=== PATIENT | female | born 1980 | race Caucasian/White ===

== ENCOUNTER 2020-04-24 13:48 | Emergency (ER) | payer SELFPAY ==
[2020-04-24 14:02] VITALS: BP 161/87; PULSE 72; RESP 18; TEMP 36.7; O2SAT 98; BMI 24.2
--- NOTE | 2020-04-24 14:25 | W.ED.GENADLT ---
HPI - General Adult General: Chief complaint: Fever Stated complaint: fever Time Seen by Provider: 04/24/20 14:12 Source: patient Mode of arrival: ambulatory Limitations: no limitations History of Present Illness: HPI narrative: Patient is a 40-year-old female who presents to ED today from [facility] for multiple medical complaints. She tells me over the past few days she has had fevers of 100.6. She is complaining of right flank and right abdominal pain. She has body aches, diarrhea, complains of urinary dysuria/frequency/urgency. She complains of a rash to her anterior neck that she states [place] She tells me on April 12 when she arrived at [facility] they had her tested for COVID which was negative. She had a rapid COVID test today based on her symptoms which again was negative. There have been no other sick contacts at [facility]. 4 days ago she was seen via virtual telehealth med visit and placed on amoxicillin for a toothache. Associated symptoms: Reports rash; Deny chest pain, dyspnea, headache(s), nausea, palpitations, syncope or vomiting Review of Systems Const: Reports: fever(s) and body aches Eyes: Denies: change in vision, blurry vision, photophobia, floaters or seeing flashes ENMT: Reports: throat pain; Denies: swelling of lips/tongue, oral sores, ear or mastoid pain, ear discharge or nasal congestion Card: Denies: chest pain, palpitations, irregular heart rhythm, edema, swelling of feet/ankles, lightheadedness, syncope, pre-syncope, dyspnea on exertion, orthopnea or leg pain with exertion Resp: Reports: productive cough and chest congestion; Denies: dyspnea or hemoptysis GI: Reports: abdominal pain and diarrhea; Denies: nausea, vomiting, hematochezia or melena : Reports: flank pain, dysuria, urinary frequency and urinary urgency; Denies: difficulty voiding, urinary hesitancy, dribbling, hematuria, genital lesions, genital pruritis, vaginal odor, vaginal bleeding, vaginal discharge or pelvic pain Musc: Denies: neck pain, extremity pain, extremity swelling, joint pain or joint swelling Skin/Breast: Reports: rash Neuro: Denies: headache(s), numbness in extremities, weakness in extremities or sensory changes Physical Exam Const: COMMON NORMALS: no acute distress, average body habitus, patient oriented x3, no limitations, healthy appearing, alert and well nourished ORIENTATION/CONSCIOUSNESS: Yes oriented to person, Yes oriented to place and Yes oriented to time HENMT: COMMON NORMALS: normocephalic, atraumatic, hearing grossly normal bilaterally, external ears normal, EAC's normal, TM's normal bilaterally, Normal external nose present, Normal nasal mucous membranes and turbinates present, moist oral mucous membranes, oropharynx normal and gingiva normal HEAD & SCALP: normal to inspection, normocephalic and atraumatic FACE & SINUS: normal facial exam and sinuses nontender NOSE: Normal external nose present and Normal nasal mucous membranes and turbinates present EXTERNAL EAR: Yes external ears normal EXTERNAL AUDITORY CANAL: EAC's normal TYMPANIC MEMBRANE: TM's normal bilaterally MOUTH: Normal oral and palatal mucosa present, lip normal and tongue normal THROAT: posterior oropharynx normal, tonsils normal and uvula midline Eye: COMMON NORMALS: Equal, round and reactive pupils present, EOMs intact bilaterally, conjunctivae normal and no scleral icterus CONJUNCTIVA: Yes conjunctivae normal PUPIL: Yes Equal, round and reactive pupils present Neck/C-Spine: COMMON NORMALS: full ROM, no lymphadenopathy and no meningeal signs OTHER: rash anterior neck consistent with plant dermatitis Resp: COMMON NORMALS: normal respiratory effort and clear to auscultation bilaterally AUSCULTATION: clear to auscultation bilaterally Cardio: COMMON NORMALS: regular rate and regular rhythm RATE: regular rate RHYTHM: regular rhythm GI: COMMON NORMALS: Normal to inspection, nondistended, normoactive bowel sounds present, Soft to palpation, No hepatosplenomegaly present and no masses PALPATION: Yes Soft to palpation, Yes Tenderness to palpation present (GI) (mild R sided abdominal pain; no guarding; non-surgical abdomen ) and Yes No hepatosplenomegaly present : BLADDER/KIDNEY EXAM: Yes CVA tenderness (mild) on the right Back/Pelvis: COMMON NORMALS: thoracic and lumbar spine normal to inspection, no thoracic nor lumbar tenderness and thoraco-lumbar ROM normal GENERAL BACK: Yes CVA tenderness (mild) Extremity: COMMON NORMALS: normal to inspection, full ROM, capillary refill normal, no clubbing, cyanosis or edema, no calf tenderness and no pedal edema GENERAL: Yes normal exam except as noted Neuro: TIMMY COMA SCALE: document GCS findings [place] coma scale eye opening: Spontaneous [place] coma scale verbal response: Orientated Timmy coma scale motor response: Obey commands [place] coma scale total score: 15 COMMON NORMALS: patient oriented x3, moves all extremities, no focal motor deficits and no sensory deficits noted SENSORIUM/ORIENTATION: Yes alert, Yes oriented to person, Yes oriented to place and Yes oriented to time MENINGEAL SIGNS: Yes no meningeal signs Skin: NARRATIVE SKIN EXAM: rash to anterior neck; otherwise normal skin exam Course Vital Signs: Vital signs: Vital Signs Temperature 98.1 F 04/24/20 14:02 Pulse Rate 69 04/24/20 16:33 Respiratory Rate 18 04/24/20 16:33 Blood Pressure 157/89 04/24/20 16:33 Pulse Oximetry 100 04/24/20 16:33 MDM - General Adult MDM Narrative: Medical decision making narrative: Patient's vital signs are stable. Her lab work is not concerning at this time. Her UA is negative. Influenza is negative. CXR is normal. Based on symptoms most likely patient having a viral illness. Discussed possibility of false negative on her COVID testing. Recommend she continue to quarantine while at [facility] for another week. Lab Data: Labs: Lab Results 04/24/20 04/24/20 04/24/20 Range/Units 14:57 14:57 14:57 WBC 10.1 H (4.0-10.0) 10^3/ uL RBC 4.52 (4.1-5.3) 10^6/u L Hgb 13.4 (11.5-15.3) g/dL Hct 40.5 (37.0-47.0) % MCV 89.6 (81-99) fL MCH 29.6 (28.0-34.0) pg MCHC 33.1 (30.0-36.0) g/dL RDW 12.3 (12.1-15.1) % Plt Count 265 (130-400) 10^3/c mm MPV 9.3 (7.4-10.4) fL Neut % (Auto) 63.4 % Lymph % (Auto) 28.3 % [place] % (Auto) 5.6 % Eos % (Auto) 2.1 % Baso % (Auto) 0.3 % Neut # (Auto) 6.39 (1.8-7.7) 10^3/u L Lymph # (Auto) 2.9 (0.8-4.8) 10^3/u L [place] # (Auto) 0.6 (0.2-0.9) 10^3/u L Eos # (Auto) 0.2 (0.0-0.8) 10^3/u L Baso # (Auto) 0.0 (0.0-0.1) 10^3/u L Nucleated RBC % (a uto) 0 % Nucleated RBCs # 0.0 /100WBC Sodium 141 (136-145) mmol/L Potassium 4.6 (3.5-5.1) mmol/L Chloride 107 (98-107) mmol/L Carbon Dioxide 24 (22-29) mmol/L Anion Gap 14.6 (5-19) BUN 12 (6-20) mg/dL Creatinine 0.7 (0.5-0.9) mg/dL GFR Calculation 93.6 (90-130) mL/min Glucose 98 (65-115) mg/dL Calculated Osmolal ity 288 (285-295) mOsm/k g Lactic Acid 0.9 (0.5-2.2) mmol/L Calcium 9.4 (8.5-10.5) mg/dL Total Bilirubin 0.4 (0.15-1.2) mg/dL AST 45 H (0-32) U/L ALT 52 H (0-33) U/L Alkaline Phosphata se 67 (35-105) IU/L Total Protein 6.7 (6.6-8.7) g/dL Albumin 3.9 (3.5-5.2) g/dL Globulin 2.8 (1.3-4.6) g/dL Urine Color (Yellow) Urine Appearance (CLEAR) Urine pH (5-7) Ur Specific Gravit y (1.005-1.030) Urine Protein (Negative) Urine Glucose (UA) (Normal) Urine Ketones (Negative) Urine Blood (Negative) Urine Nitrate (Negative) Urine Bilirubin (NEGATIVE) Prot Sulfosalicyli c Acd (Negative) Urine Urobilinogen (Negative) mg/dL Ur Leukocyte Chelo ase (Negative) Influenza Type A A g (Negative) Influenza Type B A g (Negative) 08/25/20 08/25/20 Range/Units 15:17 15:17 WBC (4.0-10.0) 10^3/ uL RBC (4.1-5.3) 10^6/u L Hgb (11.5-15.3) g/dL Hct (37.0-47.0) % MCV (81-99) fL MCH (28.0-34.0) pg MCHC (30.0-36.0) g/dL RDW (12.1-15.1) % Plt Count (130-400) 10^3/c mm MPV (7.4-10.4) fL Neut % (Auto) % Lymph % (Auto) % [place] % (Auto) % Eos % (Auto) % Baso % (Auto) % Neut # (Auto) (1.8-7.7) 10^3/u L Lymph # (Auto) (0.8-4.8) 10^3/u L [place] # (Auto) (0.2-0.9) 10^3/u L Eos # (Auto) (0.0-0.8) 10^3/u L Baso # (Auto) (0.0-0.1) 10^3/u L Nucleated RBC % (a uto) % Nucleated RBCs # /100WBC Sodium (136-145) mmol/L Potassium (3.5-5.1) mmol/L Chloride (98-107) mmol/L Carbon Dioxide (22-29) mmol/L Anion Gap (5-19) BUN (6-20) mg/dL Creatinine (0.5-0.9) mg/dL GFR Calculation (90-130) mL/min Glucose (65-115) mg/dL Calculated Osmolal ity (285-295) mOsm/k g Lactic Acid (0.5-2.2) mmol/L Calcium (8.5-10.5) mg/dL Total Bilirubin (0.15-1.2) mg/dL AST (0-32) U/L ALT (0-33) U/L Alkaline Phosphata se (35-105) IU/L Total Protein (6.6-8.7) g/dL Albumin (3.5-5.2) g/dL Globulin (1.3-4.6) g/dL Urine Color Straw (Yellow) Urine Appearance Clear (CLEAR) Urine pH 8 H (5-7) Ur Specific Gravit y 1.010 (1.005-1.030) Urine Protein Neg (Negative) Urine Glucose (UA) Norm (Normal) Urine Ketones Negative (Negative) Urine Blood Neg (Negative) Urine Nitrate Negative (Negative) Urine Bilirubin Neg (NEGATIVE) Prot Sulfosalicyli c Acd Negative (Negative) Urine Urobilinogen Norm (Negative) mg/dL Ur Leukocyte Chel[place] ase Negative (Negative) Influenza Type A A g Negative (Negative) Influenza Type B A g Negative (Negative) Imaging Data^: CXR: Radiologist's impression: [address] [address] XRay Report Signed Patient: Uzma Huggins Unit #: [id number] : 1980 Age/Sex: 40 / F ADM Date: 04/24/20 Loc: ER Room/Bed: Attending Dr: Ordering Provider/Ordering MD: Padmini Greene Date of Service: 04/24/20 Procedure(s): XR chest 1V portable [id number] Accession Number(s): [id number] Report Number: [id number] PROCEDURE INFORMATION: Exam: XR Chest, 1 View Exam date and time: 04/24/2020 2:40 PM Age: 40 years old Clinical indication: Other: Back pain; Patient HX: Recently stopped using drugs and alcohol; Additional info: Chest pain TECHNIQUE: Imaging protocol: XR of the chest Views: 1 view. COMPARISON: No relevant prior studies available. FINDINGS: Lungs: Minor curvilinear atelectasis right lung base. Pleural space: Blunting of right lateral costophrenic angle is somewhat nonspecific but could indicate a small right pleural effusion. Heart/Mediastinum: Unremarkable. No cardiomegaly. Bones/joints: Unremarkable. XR/XR chest 1V portable [id number] IMPRESSION: 1. Blunting of right lateral costophrenic angle is somewhat nonspecific but could indicate a small right pleural effusion. 2.) Minor thin curvilinear atelectasis right lung base. Dictated By: Jose Scott MD Signed By: Jose Scott MD Signed Date/Time: 04/24/20 1525 DD/ 1524 Discharge Plan Discharge Patient Disposition: Home Clinical Impression: Viral illness, Dermatitis due to plant Condition: Stable Prescriptions: New Calamine Clear 1-0.1 % lotion 1 applic TOPICAL BID PRN (Reason: rash) Qty: 177 RF: 0 No Action clonidine HCl 0.1 mg Tablet 0.1 mg PO BID PRN (Reason: unknown) RF: 0 doxepin 25 mg Capsule 25 - 50 mg PO BEDTIME PRN (Reason: unknown) RF: 0 hydroxyzine pamoate 50 mg Capsule 50 mg PO TID PRN (Reason: Anxiety) RF: 0 baclofen 10 mg Tablet 10 mg PO TID PRN (Reason: unknown) RF: 0 ibuprofen 200 mg Tablet 400 mg PO PRN RF: 0 Augmentin 875-125 mg Tablet 1 tab PO BID RF: 0 Discharge Orders: Discharge Order (Routine); Ordered 04/24/20 Ordered By: Padmini Greene Referrals: Howard Steele MD [Primary Care Provider] - Patient Instructions: Viral Syndrome (ED) Activity Restrictions/Additional Instructions: Please continue to quarantine for the next week. She may take Tylenol and/or Ibuprofen as needed for fevers and body aches. Rest and continue to push fluids. She may return to the emergency department for any worsening symptoms or concerns you may have. Discharge Date/Time: 04/24/20 16:35 Coding Level of Care Code ED Ice Platform Supervisor for Brittney Fwele Exam Comprehensive
[2020-04-24] MEDS: sodium chloride 0.9% 1,000 ML 999 ML IV (14:55)
[2020-04-24 15:05] LABS: Basophils % 0.3 %; Eosinophils # 0.2 10^3/uL (0.0-0.8); Eosinophils % 2.1 %; Hematocrit 40.5 % (37.0-47.0); Hemoglobin 13.4 g/dL (11.5-15.3); Lymphocytes # 2.9 10^3/uL (0.8-4.8); Lymphocytes % 28.3 %; Mean Corpuscular HGB Conc 33.1 g/dL (30.0-36.0); Mean Corpuscular Hemoglobin 29.6 pg (28.0-34.0); Mean Corpuscular Volume 89.6 fL (81-99); Mean Platelet Volume 9.3 fL (7.4-10.4); Monocytes # 0.6 10^3/uL (0.2-0.9); Monocytes % 5.6 %; Neutrophils # 6.39 10^3/uL (1.8-7.7); Neutrophils % 63.4 %; Nucleated Red Blood Cells % 0 %; Platelet Count 265 10^3/cmm (130-400); Red Blood Count 4.52 10^6/uL (4.1-5.3); Red Cell Distribution Width 12.3 % (12.1-15.1); White Blood Count 10.1 10^3/uL (4.0-10.0)
[2020-04-24 15:23] LABS: Lactic Sepsis W/Reflex 0.9 mmol/L (0.5-2.2)
[2020-04-24 15:24] LABS: Alanine Aminotransferase 52 U/L (0-33); Albumin Level 3.9 g/dL (3.5-5.2); Alkaline Phosphatase 67 IU/L (35-105); Anion Gap 14.6 (5-19); Aspartate Amino Transferase 45 U/L (0-32); Blood Urea Nitrogen 12 mg/dL (6-20); Calcium 9.4 mg/dL (8.5-10.5); Carbon Dioxide 24 mmol/L (22-29); Chloride 107 mmol/L (98-107); Globulin 2.8 g/dL (1.3-4.6); Glomerular Filtration Rate 93.6 mL/min (90-130); Glucose 98 mg/dL (65-115); Osmolality Calculated 288 mOsm/kg (285-295); Potassium 4.6 mmol/L (3.5-5.1); Sodium 141 mmol/L (136-145); Total Bilirubin 0.4 mg/dL (0.15-1.2); Total Protein 6.7 g/dL (6.6-8.7)
[2020-04-24 15:36] LABS: Add Urine Microscopic? NO
[2020-04-24 15:43] LABS: Bilirubin Urine Neg (NEGATIVE); Blood Urine Neg (Negative); Glucose Urine UA Norm (Normal); Ketones Urine Negative (Negative); Leukocyte Esterase Urine Negative (Negative); Nitrate Urine Negative (Negative); Protein Urine Neg (Negative); Sulfosalicylic Acid Urine Negative (Negative); Urine Appearance Clear (CLEAR); Urine Color Straw (Yellow); Urobilinogen Urine Norm (Negative); pH Urine 8 (5-7)
[2020-04-24 16:06] LABS: Influenza A by IFA Negative (Negative); Influenza B by IFA Negative (Negative)
[2020-04-24 16:33] VITALS: BP 157/89; PULSE 69; RESP 18; O2SAT 100
== END 2020-04-24 16:35 | disposition home or self-care (01) ==
PROVIDERS: Emergency Provider Physician Assistant; PCP Family Medicine
DX: B34.9 Viral infection, unspecified (principal); L25.5 Unspecified contact dermatitis due to plants, except food
CPT/HCPCS: 12345; 36415; 71045; 80053; 81003; 83605; 85025; 87040; 87804; 96360; 99283; J7030

== ENCOUNTER → 2020-04-26 10:30 | Outpatient (BNVA) | payer OTHER, SELFPAY | PROVIDERS: PCP Family Medicine; Visit Provider Internal Medicine | DX: Z11.59 Encounter for screening for other viral diseases (principal); R51 Headache; R50.9 Fever, unspecified | CPT/HCPCS: 87635 ==

== ENCOUNTER 2020-11-28 12:19 | Emergency (ER) | payer SELFPAY ==
[2020-11-28 12:23] VITALS: BP 149/115; PULSE 82; RESP 16; TEMP 36.6; O2SAT 98; BMI 22.6
--- NOTE | 2020-11-28 12:53 | W.ED.GENADLT ---
HPI - General Adult General: Chief complaint: General Medical Stated complaint: HEADACHE/UNABLE TO SEE Time Seen by Provider: 11/28/20 12:21 History of Present Illness: HPI narrative: 40 yo female presents from the local skilled nursing with complaints of nausea and vomiting difficulty with vision states she has glaucoma she also states she is having withdrawal from narcotics she has not used any narcotics in the last 2 days. During history taking patient is noted to track movement well and can focus. She will even garbage pick up man on movements at her peripheral vision that catch her attention and focus to them. Onset (ago): minute(s) Associated symptoms: Deny chest pain, dyspnea, malaise, nausea, rash or vomiting Review of Systems Const: Denies: fever(s), chills, body aches, change in appetite, fatigue or malaise ENMT: Denies: throat pain, ear or mastoid pain, nasal discharge or nasal congestion Card: Denies: chest pain, edema, dyspnea on exertion or orthopnea Resp: Denies: dyspnea, productive cough or non-productive cough GI: Denies: abdominal pain, nausea, vomiting, hematemesis, coffee ground emesis, diarrhea, constipation, bloating, hematochezia or melena : Denies: flank pain, difficulty voiding, dysuria, urinary frequency or urinary urgency Skin/Breast: Denies: rash or pruritus PFSH ED PFSH: Medical History Glaucoma Physical Exam Const: COMMON NORMALS: no acute distress GENERAL APPEARANCE: cooperative and comfortable ORIENTATION/CONSCIOUSNESS: Yes awake, Yes oriented to person, Yes oriented to place and Yes oriented to time HENMT: COMMON NORMALS: normocephalic, atraumatic, hearing grossly normal bilaterally, external ears normal, EAC's normal, TM's normal bilaterally, Normal nasal mucous membranes and turbinates present, moist oral mucous membranes and oropharynx normal HEAD & SCALP: normocephalic and atraumatic NOSE: Normal nasal mucous membranes and turbinates present EXTERNAL EAR: Yes external ears normal EXTERNAL AUDITORY CANAL: EAC's normal TYMPANIC MEMBRANE: TM's normal bilaterally Eye: COMMON NORMALS: Equal, round and reactive pupils present, EOMs intact bilaterally, conjunctivae normal and no scleral icterus CONJUNCTIVA: Yes conjunctivae normal PUPIL: Yes Equal, round and reactive pupils present OTHER: Ocular pressure measurements. 26 in the right eye 24 in the left eye. Neck/C-Spine: COMMON NORMALS: full ROM, no lymphadenopathy, supple and no JVD Lymph: LYMPHATIC: no lymphadenopathy noted and no lymphedema noted Resp: COMMON NORMALS: normal respiratory effort, No retractions, No use of accessory muscles and clear to auscultation bilaterally AUSCULTATION: clear to auscultation bilaterally Cardio: COMMON NORMALS: no JVD, regular rate, regular rhythm and No murmurs present (Cardio) RATE: regular rate RHYTHM: regular rhythm GI: COMMON NORMALS: Soft to palpation and No hepatosplenomegaly present AUSCULTATION: Yes normoactive bowel sounds PALPATION: Yes Soft to palpation, No Tenderness to palpation present (GI), No Guarding due to palpation present (GI) and Yes No hepatosplenomegaly present Extremity: COMMON NORMALS: normal to inspection, capillary refill normal, no clubbing, cyanosis or edema, no calf tenderness and no pedal edema Neuro: SENSORIUM/ORIENTATION: Yes oriented to person, Yes oriented to place and Yes oriented to time Skin: COMMON NORMALS: no rashes or lesions noted GENERAL SKIN EXAM: no rashes or lesions noted Course Vital Signs: Vital signs: Vital Signs Temperature 97.9 F 11/28/20 12:23 Pulse Rate 79 11/28/20 16:24 Respiratory Rate 18 11/28/20 16:24 Blood Pressure 137/101 11/28/20 16:24 Pulse Oximetry 98 11/28/20 16:24 MDM - General Adult MDM Narrative: Medical decision making narrative: Patient is tracking and focusing. Ocular pressures are mildly elevated discussed with Dr. Coronado he does not feel at this point it is emergent. She has no eye pain there is no redness or erythema. Once we had reviewed this with her she suddenly became suicidal. She then changed her complaint again and states she was having generalized aches and pains she demanded to be admitted. She then returned to complaining of suicidal attempts telling the acute care occupational therapist how she would harm herself by forcing something into an electric socket a particular area of the skilled nursing. The acute care occupational therapist told her she would not be allowed into that area again. Then patient stated she would starve herself. Psychiatry was consulted. Neither myself nor Dr. Carrillo feel the patient warrants a true harm to self at this point. She can be kept on suicide watch at the skilled nursing which we recommend. Lab Data: Labs: Lab Results 11/28/20 11/28/20 Range/Units 14:12 14:12 WBC 12.7 H (4.0-10.0) 10^3/ uL RBC 4.70 (4.1-5.3) 10^6/u L Hgb 13.3 (11.5-15.3) g/dL Hct 41.4 (37.0-47.0) % MCV 88.1 (81-99) fL MCH 28.3 (28.0-34.0) pg MCHC 32.1 (30.0-36.0) g/dL RDW 11.9 L (12.1-15.1) % Plt Count 428 H (130-400) 10^3/c mm MPV 8.6 (7.4-10.4) fL Neut % (Auto) 73.9 % Lymph % (Auto) 22.4 % [place] % (Auto) 2.7 % Eos % (Auto) 0.1 % Baso % (Auto) 0.2 % Neut # (Auto) 9.41 H (1.8-7.7) 10^3/u L Lymph # (Auto) 2.9 (0.8-4.8) 10^3/u L [place] # (Auto) 0.3 (0.2-0.9) 10^3/u L Eos # (Auto) 0.0 (0.0-0.8) 10^3/u L Baso # (Auto) 0.0 (0.0-0.1) 10^3/u L Nucleated RBC % (a uto) 0 % Nucleated RBCs # 0.0 /100WBC Sodium 138 (136-145) mmol/L Potassium 3.9 (3.5-5.1) mmol/L Chloride 102 (98-107) mmol/L Carbon Dioxide 27 (22-29) mmol/L Anion Gap 12.9 (5-19) BUN 11 (6-20) mg/dL Creatinine 0.5 (0.5-0.9) mg/dL GFR Calculation 138.1 H (90-130) mL/min Glucose 94 (65-115) mg/dL Calculated Osmolal ity 285 (285-295) mOsm/k g Calcium 9.0 (8.5-10.5) mg/dL Total Bilirubin 0.3 (0.15-1.2) mg/dL AST 11 (0-32) U/L ALT 15 (0-33) U/L Alkaline Phosphata se 58 (35-105) IU/L Total Protein 7.7 (6.6-8.7) g/dL Albumin 3.9 (3.5-5.2) g/dL Globulin 3.8 (1.3-4.6) g/dL Discharge Plan Discharge Patient Disposition: Home Clinical Impression: Headache, Glaucoma, Threatening suicide Condition: Stable Prescriptions: No Action clonidine HCl 0.1 mg Tablet 0.1 mg PO BID PRN (Reason: unknown) RF: 0 doxepin 25 mg Capsule 25 - 50 mg PO BEDTIME PRN (Reason: unknown) RF: 0 hydroxyzine pamoate 50 mg Capsule 50 mg PO TID PRN (Reason: Anxiety) RF: 0 baclofen 10 mg Tablet 10 mg PO TID PRN (Reason: unknown) RF: 0 ibuprofen 200 mg Tablet 400 mg PO PRN RF: 0 amoxicillin-pot clavulanate [Augmentin] 875-125 mg Tablet 1 tab PO BID RF: 0 [place] Clear 1-0.1 % lotion 1 applic TOPICAL BID PRN (Reason: rash) Qty: 177 RF: 0 Discharge Orders: Discharge ED (Routine); Ordered 11/28/20 Ordered By: Arthur Dempsey Patient Instructions: Opioid Safety Activity Restrictions/Additional Instructions: His management make arrangements for you to see Dr. Coronado. It is recommended that you be placed on suicide watch at the skilled nursing. Coding Level of Care Code ED Manager Icu for Brittney Fwd Exam Comprehensive
--- NOTE | 2020-11-28 12:55 | CT_ITS ---
WS: [id number] CT HEAD NONCONTRAST HISTORY: headache w vision changes TECHNIQUE: Contiguous axial imaging performed through the brain in 2.5 mm imaging. Bone and soft tiss ue windows. Sagittal and coronal reformats reviewed. All CT scans at [facility] use at ast one of these dose optimization techniques: automated exposure control; mA and/or kV adjustment pe r patient size (includes targeted exams where dose is matched to clinical indication); or iterative r econstruction. DLP: 835.64 mGy.cm COMPARISON: 02/02/2015 No acute intracranial hemorrhage, midline shift or mass effect. No atrophy or prior infarcts or herniation. Ventricles: Normal size with no hydrocephalus. No inferior displacement of cerebellar tonsils. Paranasal sinuses: As visualized are clear. Mastoid air cells: Well pneumatized. Calvarium and scalp: Skull is intact with no soft tissue edema or swelling. CT/CT head wo con* [id number] IMPRESSION: Negative head CT.
[2020-11-28] MEDS: sodium chloride 0.9% 1,000 ML 999 ML IV (13:11)
[2020-11-28] MEDS: ondansetron 2 mg/ML SDV 2 mL 4 MG IVP (13:11)
[2020-11-28 14:19] LABS: Basophils % 0.2 %; Eosinophils % 0.1 %; Hematocrit 41.4 % (37.0-47.0); Hemoglobin 13.3 g/dL (11.5-15.3); Lymphocytes # 2.9 10^3/uL (0.8-4.8); Lymphocytes % 22.4 %; Mean Corpuscular HGB Conc 32.1 g/dL (30.0-36.0); Mean Corpuscular Hemoglobin 28.3 pg (28.0-34.0); Mean Corpuscular Volume 88.1 fL (81-99); Mean Platelet Volume 8.6 fL (7.4-10.4); Monocytes # 0.3 10^3/uL (0.2-0.9); Monocytes % 2.7 %; Neutrophils # 9.41 10^3/uL (1.8-7.7); Neutrophils % 73.9 %; Nucleated Red Blood Cells % 0 %; Platelet Count 428 10^3/cmm (130-400); Red Cell Distribution Width 11.9 % (12.1-15.1); White Blood Count 12.7 10^3/uL (4.0-10.0)
--- NOTE | 2020-11-28 14:24 | PC.NURSE ---
US guided IV placed to right AC, 20g after multiple sticks. Blood drawn and sent to lab.
[2020-11-28 14:39] LABS: Alanine Aminotransferase 15 U/L (0-33); Albumin Level 3.9 g/dL (3.5-5.2); Alkaline Phosphatase 58 IU/L (35-105); Anion Gap 12.9 (5-19); Aspartate Amino Transferase 11 U/L (0-32); Blood Urea Nitrogen 11 mg/dL (6-20); Carbon Dioxide 27 mmol/L (22-29); Chloride 102 mmol/L (98-107); Globulin 3.8 g/dL (1.3-4.6); Glomerular Filtration Rate 138.1 mL/min (90-130); Glucose 94 mg/dL (65-115); Osmolality Calculated 285 mOsm/kg (285-295); Potassium 3.9 mmol/L (3.5-5.1); Sodium 138 mmol/L (136-145); Total Bilirubin 0.3 mg/dL (0.15-1.2); Total Protein 7.7 g/dL (6.6-8.7)
[2020-11-28] MEDS: promethazine 25 mg/mL SDV 1 mL IM (15:31)
[2020-11-28] MEDS: ketorolac 30 mg/mL INJ IVP (15:31)
[2020-11-28] MEDS: tetanus-dipt-pertussis 0.5 mL SDV IM (16:03)
[2020-11-28] MEDS: LORazepam 2 mg Tablet PO (16:12)
[2020-11-28] MEDS: haloperidol inj 5 mg/mL INJ 1 mL IM (16:14)
--- NOTE | 2020-11-28 16:22 | PC.NURSE ---
patients arm was covered with telfa and gauze the right arm was covered with triple abx ointmentl patient tolerated well
[2020-11-28 16:24] VITALS: BP 137/101; PULSE 79; RESP 18; O2SAT 98
== END 2020-11-28 16:26 | disposition home or self-care (01) ==
PROVIDERS: Emergency Provider Family Medicine
DX: R51.9 Headache, unspecified (principal); H40.9 Unspecified glaucoma; R45.851 Suicidal ideations; Z23 Encounter for immunization
CPT/HCPCS: 70450; 80053; 85025; 90471; 90715; 96361; 96372; 96374; 96375; 99284; A6446; J1630; J1885; J2405; J2550; J7030

== ENCOUNTER → 2021-12-27 13:05 | Outpatient (BNVA) | payer OTHER, SELFPAY | PROVIDERS: Visit Provider Psychiatry & Neurology Psychiatry | DX: F11.20 Opioid dependence, uncomplicated (principal); F15.20 Other stimulant dependence, uncomplicated; Z79.899 Other long term (current) drug therapy | CPT/HCPCS: 80307 ==

== ENCOUNTER → 2022-01-06 12:06 | Outpatient (BNVA) | payer OTHER, SELFPAY | PROVIDERS: Visit Provider Psychiatry & Neurology Psychiatry | DX: Z79.899 Other long term (current) drug therapy (principal); F11.20 Opioid dependence, uncomplicated | CPT/HCPCS: 80307 ==

== ENCOUNTER → 2022-02-03 11:41 | Outpatient (BNVA) | payer OTHER, SELFPAY | PROVIDERS: Visit Provider Psychiatry & Neurology Psychiatry | DX: F11.20 Opioid dependence, uncomplicated (principal); F15.20 Other stimulant dependence, uncomplicated; F43.12 Post-traumatic stress disorder, chronic; F17.200 Nicotine dependence, unspecified, uncomplicated; Z79.899 Other long term (current) drug therapy | CPT/HCPCS: 80307 ==

== ENCOUNTER → 2022-08-21 10:56 | Outpatient (BNVA) | payer OTHER, SELFPAY | PROVIDERS: Visit Provider Psychiatry & Neurology Psychiatry | DX: Z79.899 Other long term (current) drug therapy (principal); F11.20 Opioid dependence, uncomplicated; F43.12 Post-traumatic stress disorder, chronic; F17.200 Nicotine dependence, unspecified, uncomplicated; F15.20 Other stimulant dependence, uncomplicated | CPT/HCPCS: 80307 ==

== ENCOUNTER 2022-09-07 19:19 | Emergency (ER) | payer MEDICAID, SELFPAY ==
--- NOTE | 2022-09-07 19:23 | W.ED.PSYCHS ---
Documented by User: Yoel Martínez MD 09/16/22 04:00 HPI - Psych General: Chief Complaint: Psychiatric Symptoms Stated Complaint: SI Time Seen by Provider: 09/07/22 19:23 History of Present Illness: Ms. Huggins is a 42-year-old lady with history of psychiatric disorder and polysubstance abuse presenting to the emergency department for suicidal ideation. She was in group home and prolonged forced reported affidavit was hitting her head against the wall stating she wanted to kill her self. She was restrained in a chair and continued to say similar and therefore brought to the emergency department for further evaluation. Patient reports increased stress lately and feeling like everything just got out of control today. She has been compliant with medication regimen and follows in the outpatient setting with [facility]. She does admit that her medications may need to be changed. She has a contusion to forehead with mild pain however no other significant symptoms. Denies other significant changes in health. Onset (ago): hour(s) History of same: Yes Context: significant life stressor Associated psychiatric symptoms: suicidal ideation and racing thoughts Review of Systems General: Reports: 10 or more systems reviewed and unremarkable except in HPI and below PFSH ED PFSH: Medical History Glaucoma Psychiatric care Social History Smoking and tobacco status: current every day smoker e-cigarettes E-Cigarette Details: vaporizer device and with nicotine E-cig/vape details: 48 mg/Q two days. Quit status (tobacco): has tried quititng Number of times tried to quit tobacco: 2 Second hand smoke exposure: Yes Smoking risk assessment/counseling performed?: No Alcohol intake: never Desire information about alcohol rehabilitation?: No Counseling given: No Desire information about substance/drug rehabilitation?: No Counseling given: No Physical Exam Const: COMMON NORMALS: alert GENERAL APPEARANCE: cooperative and well developed HENMT: COMMON NORMALS: normocephalic HEAD & SCALP: normocephalic OTHER: Contusion to forehead with superficial abrasion, no laceration or injury requiring repair. Eye: COMMON NORMALS: conjunctivae normal CONJUNCTIVA: Yes conjunctivae normal SCLERA: sclerae normal Neck/C-Spine: COMMON NORMALS: supple GENERAL: Yes trachea midline Resp: COMMON NORMALS: clear to auscultation bilaterally EFFORT & INSPECTION: Yes able to speak in complete sentences AUSCULTATION: clear to auscultation bilaterally Cardio: COMMON NORMALS: regular rate and regular rhythm RATE: regular rate RHYTHM: regular rhythm GI: COMMON NORMALS: Soft to palpation PALPATION: Yes Soft to palpation and No Tenderness to palpation present (GI) Extremity: GENERAL: Yes normal exam except as noted and No edema Neuro: COMMON NORMALS: moves all extremities SENSORIUM/ORIENTATION: Yes alert and No Orientation impaired Psych: COMMON NORMALS: mental status grossly normal and Normal thought process present THOUGHT PROCESS: Normal thought process present Course Vital Signs: Vital signs: Vital Signs Temperature 98.1 F 09/07/22 19:34 Pulse Rate 68 09/07/22 19:34 Respiratory Rate 16 09/07/22 19:34 Blood Pressure 118/81 09/07/22 19:34 Pulse Oximetry 97 09/07/22 19:34 Oxygen Delivery Me thod 09/07/22 19:34 MDM - Psych Medical Decision Making 42-year-old lady presenting from group home with reported suicidal statements. Exam as above. No significant hematologic or metabolic abnormality requiring invention. Toxic ingestions negative. Handed off to overnight ED physician pending reassessment and possible placement. I received this patient and check out from the previous physician at shift change. This lady does have a psychiatric history. The police have released her from custody. She is stating that the actions listed in the HPI were simply a ploy to get her to be released from custody and out of group home. She floridly denies any suicidal ideation or plan whatsoever. She is not homicidal. She is sitting in the hallway, and roaming around the ER, as she says the room makes her stressed out. An affidavit was written by law enforcement, but the patient was not placed under 96 hour hold. We have no beds available at our facility. Again, she is in no way suicidal, and is asking to leave and go home. She has a ride ready. She is medically stable as per the labs below. She will be discharged. Medical Records I reviewed the patient's medical records. Lab Data I reviewed the patient's lab results. 09/07/22 19:57 09/07/22 19:57 Laboratory Results WBC 9.8 10^3/uL (4.0-10.0) 09/07/22 19:57 RBC 4.75 10^6/uL (4.1-5.3) 09/07/22 19:57 Hgb 13.7 g/dL (11.5-15.3) 09/07/22 19:57 Hct 42.7 % (37.0-47.0) 09/07/22 19:57 MCV 89.9 fl (81-99) 09/07/22 19:57 MCH 28.8 pg (28.0-34.0) 09/07/22 19:57 MCHC 32.1 g/dL (30.0-36.0) 09/07/22 19:57 RDW 11.8 % (12.1-15.1) L 09/07/22 19:57 Plt Count 323 10^3/cmm (130-400) 09/07/22 19:57 MPV 9.6 fL (7.4-10.4) 09/07/22 19:57 Neut % (Auto) 63.0 % 09/07/22 19:57 Lymph % (Auto) 32.2 % 09/07/22 19:57 Victoria % (Auto) 3.2 % 09/07/22 19:57 Eos % (Auto) 1.2 % 09/07/22 19:57 Baso % (Auto) 0.3 % 09/07/22 19:57 Neut # (Auto) 6.19 10^3/uL (1.8-7.7) 09/07/22 19:57 Lymph # (Auto) 3.2 10^3/uL (0.8-4.8) 09/07/22 19:57 Victoria # (Auto) 0.3 10^3/uL (0.2-0.9) 09/07/22 19:57 Eos # (Auto) 0.1 10^3/uL (0.0-0.8) 09/07/22 19:57 Baso # (Auto) 0.0 10^3/uL (0.0-0.1) 09/07/22 19:57 Nucleated RBC % (auto) 0 % 09/07/22 19:57 Nucleated RBCs # 0.0 /100WBC 09/07/22 19:57 Sodium 135 mmol/L (136-145) L 09/07/22 19:57 Potassium 3.6 mmol/L (3.5-5.1) 09/07/22 19:57 Chloride 100 mmol/L (98-107) 09/07/22 19:57 Carbon Dioxide 24 mmol/L (22-29) 09/07/22 19:57 Anion Gap 14.6 (5-19) 09/07/22 19:57 BUN 16 mg/dL (6-20) 09/07/22 19:57 Creatinine 0.6 mg/dL (0.5-0.9) 09/07/22 19:57 GFR Calculation 110.7 mL/min (90-130) 09/07/22 19:57 Glucose 147 mg/dL (65-115) H 09/07/22 19:57 Calculated Osmolality 284 mOsm/kg (285-295) L 09/07/22 19:57 Calcium 9.7 mg/dL (8.5-10.5) 09/07/22 19:57 Total Bilirubin 0.3 mg/dL (0.15-1.2) 09/07/22 19:57 AST 22 U/L (0-32) 09/07/22 19:57 ALT 35 U/L (0-33) H 09/07/22 19:57 Alkaline Phosphatase 87 U/L (35-105) 09/07/22 19:57 Total Protein 7.9 g/dL (6.6-8.7) 09/07/22 19:57 Albumin 4.2 g/dL (3.5-5.2) 09/07/22 19:57 Globulin 3.7 g/dL (1.3-4.6) 09/07/22 19:57 TSH 0.68 uIU/mL (0.27-4.20) 09/07/22 19:57 HCG, Qual Negative (Negative) 09/07/22 19:25 Salicylates < 0.3 mg/dL (3-10) L 09/07/22 19:57 Urine Opiates Screen Negative ng/mL (Negative) 09/07/22 19:25 Acetaminophen < 5.0 ug/mL (10-30) L 09/07/22 19:57 Ur Barbiturates Screen Negative ng/mL (Negative) 09/07/22 19:25 Ur Phencyclidine Scrn Negative ng/mL (Negative) 09/07/22 19:25 Ur Amphetamines Screen Negative ng/mL (Negative) 09/07/22 19:25 U Benzodiazepines Scrn Negative ng/mL (Negative) 09/07/22 19:25 Urine Cocaine Screen Negative ng/mL (Negative) 09/07/22 19:25 U Marijuana (THC) Screen Negative ng/mL (Negative) 09/07/22 19:25 Ethyl Alcohol < 10 mg/dL (0-10) 09/07/22 19:57 Discharge Plan Discharge Patient Disposition: Home Clinical Impression: Depression Condition: Stable Prescriptions: No Action propranolol 20 mg tablet 20 mg PO BID Qty: 60 2RF buprenorphine-naloxone 8-2 mg tablet, sublingual 1 tab sublingual BID Qty: 60 0RF ibuprofen 200 mg tablet 600 mg PO BID PRN (Reason: fever or pain) Discharge Orders: Discharge ED (Routine); Ordered 09/08/22 Ordered By: Crispin Angulo Patient Instructions: Depression (ED) Activity Restrictions/Additional Instructions: Return for any return of thoughts or wishes to harm your self or anyone else Coding Level of Care Code ED Outpatient Physical Therapist Assistant for Chg Fwd Exam Comprehensive Documented by User: Crispin Angulo DO 09/09/22 12:01 HPI - Psych General: Chief Complaint: Psychiatric Symptoms Stated Complaint: SI Time Seen by Provider: 09/07/22 19:23 [facility] PFSH: Medical History Glaucoma Psychiatric care Social History Smoking and tobacco status: current every day smoker e-cigarettes E-Cigarette Details: vaporizer device and with nicotine E-cig/vape details: 48 mg/Q two days. Quit status (tobacco): has tried quititng Number of times tried to quit tobacco: 2 Second hand smoke exposure: Yes Smoking risk assessment/counseling performed?: No Alcohol intake: never Desire information about alcohol rehabilitation?: No Counseling given: No Desire information about substance/drug rehabilitation?: No Counseling given: No Course Vital Signs: Vital signs: Vital Signs Temperature 98.1 F 09/07/22 19:34 Pulse Rate 68 09/07/22 19:34 Respiratory Rate 16 09/07/22 19:34 Blood Pressure 118/81 09/07/22 19:34 Pulse Oximetry 97 09/07/22 19:34 Oxygen Delivery Me thod 09/07/22 19:34 MDM - Psych Medical Decision Making I received this patient and check out from the previous physician at shift change. This lady does have a psychiatric history. The police have released her from custody. She is stating that the actions listed in the HPI were simply a ploy to get her to be released from custody and out of group home. She floridly denies any suicidal ideation or plan whatsoever. She is not homicidal. She is sitting in the hallway, and roaming around the ER, as she says the room makes her stressed out. An affidavit was written by law enforcement, but the patient was not placed under 96 hour hold. We have no beds available at our facility. Again, she is in no way suicidal, and is asking to leave and go home. She has a ride ready. She is medically stable as per the labs below. She will be discharged. Lab Data 09/07/22 19:57 09/07/22 19:57 Laboratory Results WBC 9.8 10^3/uL (4.0-10.0) 09/07/22 19:57 RBC 4.75 10^6/uL (4.1-5.3) 09/07/22 19:57 Hgb 13.7 g/dL (11.5-15.3) 09/07/22 19:57 Hct 42.7 % (37.0-47.0) 09/07/22 19:57 MCV 89.9 fl (81-99) 09/07/22 19:57 MCH 28.8 pg (28.0-34.0) 09/07/22 19:57 MCHC 32.1 g/dL (30.0-36.0) 09/07/22 19:57 RDW 11.8 % (12.1-15.1) L 09/07/22 19:57 Plt Count 323 10^3/cmm (130-400) 09/07/22 19:57 MPV 9.6 fL (7.4-10.4) 09/07/22 19:57 Neut % (Auto) 63.0 % 09/07/22 19:57 Lymph % (Auto) 32.2 % 09/07/22 19:57 Victoria % (Auto) 3.2 % 09/07/22 19:57 Eos % (Auto) 1.2 % 09/07/22 19:57 Baso % (Auto) 0.3 % 09/07/22 19:57 Neut # (Auto) 6.19 10^3/uL (1.8-7.7) 09/07/22 19:57 Lymph # (Auto) 3.2 10^3/uL (0.8-4.8) 09/07/22 19:57 Victoria # (Auto) 0.3 10^3/uL (0.2-0.9) 09/07/22 19:57 Eos # (Auto) 0.1 10^3/uL (0.0-0.8) 09/07/22 19:57 Baso # (Auto) 0.0 10^3/uL (0.0-0.1) 09/07/22 19:57 Nucleated RBC % (auto) 0 % 09/07/22 19:57 Nucleated RBCs # 0.0 /100WBC 09/07/22 19:57 Sodium 135 mmol/L (136-145) L 09/07/22 19:57 Potassium 3.6 mmol/L (3.5-5.1) 09/07/22 19:57 Chloride 100 mmol/L (98-107) 09/07/22 19:57 Carbon Dioxide 24 mmol/L (22-29) 09/07/22 19:57 Anion Gap 14.6 (5-19) 09/07/22 19:57 BUN 16 mg/dL (6-20) 09/07/22 19:57 Creatinine 0.6 mg/dL (0.5-0.9) 09/07/22 19:57 GFR Calculation 110.7 mL/min (90-130) 09/07/22 19:57 Glucose 147 mg/dL (65-115) H 09/07/22 19:57 Calculated Osmolality 284 mOsm/kg (285-295) L 09/07/22 19:57 Calcium 9.7 mg/dL (8.5-10.5) 09/07/22 19:57 Total Bilirubin 0.3 mg/dL (0.15-1.2) 09/07/22 19:57 AST 22 U/L (0-32) 09/07/22 19:57 ALT 35 U/L (0-33) H 09/07/22 19:57 Alkaline Phosphatase 87 U/L (35-105) 09/07/22 19:57 Total Protein 7.9 g/dL (6.6-8.7) 09/07/22 19:57 Albumin 4.2 g/dL (3.5-5.2) 09/07/22 19:57 Globulin 3.7 g/dL (1.3-4.6) 09/07/22 19:57 TSH 0.68 uIU/mL (0.27-4.20) 09/07/22 19:57 HCG, Qual Negative (Negative) 09/07/22 19:25 Salicylates < 0.3 mg/dL (3-10) L 09/07/22 19:57 Urine Opiates Screen Negative ng/mL (Negative) 09/07/22 19:25 Acetaminophen < 5.0 ug/mL (10-30) L 09/07/22 19:57 Ur Barbiturates Screen Negative ng/mL (Negative) 09/07/22 19:25 Ur Phencyclidine Scrn Negative ng/mL (Negative) 09/07/22 19:25 Ur Amphetamines Screen Negative ng/mL (Negative) 09/07/22 19:25 U Benzodiazepines Scrn Negative ng/mL (Negative) 09/07/22 19:25 Urine Cocaine Screen Negative ng/mL (Negative) 09/07/22 19:25 U Marijuana (THC) Screen Negative ng/mL (Negative) 09/07/22 19:25 Ethyl Alcohol < 10 mg/dL (0-10) 09/07/22 19:57 Discharge Plan Discharge Patient Disposition: Home Clinical Impression: Depression Condition: Stable Prescriptions: No Action propranolol 20 mg tablet 20 mg PO BID Qty: 60 2RF buprenorphine-naloxone 8-2 mg tablet, sublingual 1 tab sublingual BID Qty: 60 0RF ibuprofen 200 mg tablet 600 mg PO BID PRN (Reason: fever or pain) Discharge Orders: Discharge ED (Routine); Ordered 09/08/22 Ordered By: Crispin Angulo Patient Instructions: Depression (ED) Activity Restrictions/Additional Instructions: Return for any return of thoughts or wishes to harm your self or anyone else Coding Level of Care Code ED Outpatient Physical Therapist Assistant for Brittney Fwd Exam Comprehensive
[2022-09-07 19:29] VITALS: BMI 20.9
[2022-09-07 19:34] VITALS: BP 118/81; PULSE 68; RESP 16; TEMP 36.7; O2SAT 97
[2022-09-07 20:07] LABS: Basophils % 0.3 %; Eosinophils # 0.1 10^3/uL (0.0-0.8); Eosinophils % 1.2 %; Hematocrit 42.7 % (37.0-47.0); Hemoglobin 13.7 g/dL (11.5-15.3); Lymphocytes # 3.2 10^3/uL (0.8-4.8); Lymphocytes % 32.2 %; Mean Corpuscular HGB Conc 32.1 g/dL (30.0-36.0); Mean Corpuscular Hemoglobin 28.8 pg (28.0-34.0); Mean Corpuscular Volume 89.9 fl (81-99); Mean Platelet Volume 9.6 fL (7.4-10.4); Monocytes # 0.3 10^3/uL (0.2-0.9); Monocytes % 3.2 %; Neutrophils # 6.19 10^3/uL (1.8-7.7); Nucleated Red Blood Cells % 0 %; Platelet Count 323 10^3/cmm (130-400); Red Blood Count 4.75 10^6/uL (4.1-5.3); Red Cell Distribution Width 11.8 % (12.1-15.1); White Blood Count 9.8 10^3/uL (4.0-10.0)
[2022-09-07 20:11] LABS: HCG Qualitative Urine. Negative (Negative)
[2022-09-07 20:17] LABS: Amphetamines Screen Urine Negative (Negative); Barbiturates Screen Urine Negative (Negative); Benzodiazepines Screen Urine Negative (Negative); Cocaine Screen Urine Negative (Negative); Opiate Screen Urine Negative (Negative); PCP Screen Urine Negative (Negative); THC Screen Urine Negative (Negative)
[2022-09-07 20:41] LABS: Alanine Aminotransferase 35 U/L (0-33); Albumin Level 4.2 g/dL (3.5-5.2); Alkaline Phosphatase 87 U/L (35-105); Anion Gap 14.6 (5-19); Aspartate Amino Transferase 22 U/L (0-32); Blood Urea Nitrogen 16 mg/dL (6-20); Calcium 9.7 mg/dL (8.5-10.5); Carbon Dioxide 24 mmol/L (22-29); Chloride 100 mmol/L (98-107); Creatinine Clr Calc Pharmacy 116.4162; Globulin 3.7 g/dL (1.3-4.6); Glomerular Filtration Rate 110.7 mL/min (90-130); Glucose 147 mg/dL (65-115); Osmolality Calculated 284 mOsm/kg (285-295); Potassium 3.6 mmol/L (3.5-5.1); Sodium 135 mmol/L (136-145); Thyroid Stimulating Hormone 0.68 uIU/mL (0.27-4.20); Total Bilirubin 0.3 mg/dL (0.15-1.2); Total Protein 7.9 g/dL (6.6-8.7)
[2022-09-07 20:45] LABS: Acetaminophen < 5.0 ug/mL (10-30); Alcohol Level < 10 mg/dL (0-10); Salicylate < 0.3 mg/dL (3-10)
== END 2022-09-08 01:11 | disposition home or self-care (01) ==
PROVIDERS: Emergency Medicine; Emergency Provider Emergency Medicine
DX: F32.A Depression, unspecified (principal); F17.290 Nicotine dependence, other tobacco product, uncomplicated
CPT/HCPCS: 80053; 80306; 80307; 81025; 84443; 85025; 99283

== ENCOUNTER → 2022-11-27 15:04 | Outpatient (BNVA) | payer MEDICAID, SELFPAY | PROVIDERS: Visit Provider Psychiatry & Neurology Psychiatry | DX: F11.20 Opioid dependence, uncomplicated (principal); Z79.899 Other long term (current) drug therapy; F43.12 Post-traumatic stress disorder, chronic; F17.200 Nicotine dependence, unspecified, uncomplicated; F15.20 Other stimulant dependence, uncomplicated | CPT/HCPCS: 80307 ==

== ENCOUNTER → 2023-02-27 10:39 | Outpatient (BNVA) | payer OTHER, SELFPAY | PROVIDERS: Visit Provider Psychiatry & Neurology Psychiatry | DX: Z79.899 Other long term (current) drug therapy (principal); F11.20 Opioid dependence, uncomplicated; F15.20 Other stimulant dependence, uncomplicated | CPT/HCPCS: 80307 ==

== ENCOUNTER → 2023-03-04 15:21 | Outpatient (BNVA) | payer OTHER, SELFPAY | PROVIDERS: Visit Provider Psychiatry & Neurology Psychiatry | DX: F15.20 Other stimulant dependence, uncomplicated (principal); F11.20 Opioid dependence, uncomplicated; F43.12 Post-traumatic stress disorder, chronic; F17.200 Nicotine dependence, unspecified, uncomplicated; Z79.899 Other long term (current) drug therapy | CPT/HCPCS: 80307 ==

== ENCOUNTER → 2023-09-04 14:04 | Outpatient (BNVA) | payer OTHER, SELFPAY | PROVIDERS: Visit Provider Psychiatry & Neurology Psychiatry | DX: F11.20 Opioid dependence, uncomplicated (principal); F15.20 Other stimulant dependence, uncomplicated; Z79.899 Other long term (current) drug therapy; F43.12 Post-traumatic stress disorder, chronic; F17.200 Nicotine dependence, unspecified, uncomplicated | CPT/HCPCS: 80307 ==

== ENCOUNTER → 2024-05-16 15:28 | Outpatient (BNVA) | payer OTHER, SELFPAY | PROVIDERS: Visit Provider Psychiatry & Neurology Psychiatry | DX: Z79.899 Other long term (current) drug therapy (principal); F11.20 Opioid dependence, uncomplicated; F43.12 Post-traumatic stress disorder, chronic; F15.20 Other stimulant dependence, uncomplicated; F17.200 Nicotine dependence, unspecified, uncomplicated | CPT/HCPCS: 80307 ==

== ENCOUNTER → 2024-10-14 15:49 | Outpatient (BNVA) | payer OTHER, SELFPAY | PROVIDERS: Visit Provider Psychiatry & Neurology Psychiatry | DX: F11.20 Opioid dependence, uncomplicated (principal); F15.20 Other stimulant dependence, uncomplicated; F43.12 Post-traumatic stress disorder, chronic; Z79.899 Other long term (current) drug therapy; F17.200 Nicotine dependence, unspecified, uncomplicated | CPT/HCPCS: 80307 ==

== ENCOUNTER → 2024-12-16 11:18 | Outpatient (BNVA) | payer OTHER, SELFPAY | PROVIDERS: Visit Provider Psychiatry & Neurology Psychiatry | DX: F11.20 Opioid dependence, uncomplicated (principal); F15.20 Other stimulant dependence, uncomplicated; Z79.899 Other long term (current) drug therapy | CPT/HCPCS: 80307 ==

== ENCOUNTER → 2025-08-30 10:30 | Outpatient (BNVA) | payer OTHER, SELFPAY | PROVIDERS: Visit Provider Nurse Practitioner | DX: F15.20 Other stimulant dependence, uncomplicated (principal); F11.20 Opioid dependence, uncomplicated; Z79.899 Other long term (current) drug therapy; F43.12 Post-traumatic stress disorder, chronic; F17.200 Nicotine dependence, unspecified, uncomplicated | CPT/HCPCS: 80307 ==